=== PATIENT | female | born 1970 | race Caucasian/White ===

== ENCOUNTER 2017-01-14 14:46 | Emergency (ER) | payer MEDICARE, OTHER ==
[~2017-01-14] VITALS: Ht 172.7 cm; Wt 76.0 kg
[~2017-01-14 14:46] MED LIST: BENZ0.5T32 PO; CLOZ100 PO; DIVA500T35 PO; DOCU250C91 PO; HALO10 PO; HALO100A IM; HALO50VI4 IM
[2017-01-14] MEDS ORDERED: PROZ10 PO (15:25)
[2017-01-14] MEDS ORDERED: LORA1TAB3 PO (15:25)
[2017-01-14] MEDS ORDERED: ZIPR20I IM ×2 (15:25)
[2017-01-14] MEDS ORDERED: MIRT30 PO (15:25)
[2017-01-14] MEDS ORDERED: LORA1TAB3 IM (15:25)
[2017-01-14] MEDS ORDERED: RISP4 PO (15:25)
[2017-01-14] MEDS ORDERED: RISP1 PO (15:25)
[2017-01-14] MEDS ORDERED: LITH300C3 PO (15:25)
[2017-01-14 16:20] LABS: BASOPHILS # (AUTO) 0.03 K/uL (0.00-0.20); BASOPHILS % (AUTO) 0.4 % (0.0-2.0); EOSINOPHILS # (AUTO) 0.06 K/uL (0.00-0.70); EOSINOPHILS % (AUTO) 0.79 % (1.0-6.0); HEMATOCRIT 33.9 % (36-46); LYMPHOCYTES % (AUTO) 12.9 % (22.0-44.0); MEAN CORPUSCULAR HEMOGLOBIN 30.5 pg (26.0-34.0); MEAN CORPUSCULAR HGB CONC 32.5 G/dL (31.0-37.0); MEAN CORPUSCULAR VOLUME 94 fL (80-100); MONOCYTES # (AUTO) 0.5 K/uL (0.1-1.0); MONOCYTES % (AUTO) 6.8 % (2.0-9.0); NEUTROPHILS # (AUTO) 6.2 K/uL (1.8-7.7); NEUTROPHILS % (AUTO) 79.2 % (40.0-70.0); PLATELET COUNT (AUTO) 263 K/uL (150-450); RED BLOOD CELL COUNT(AUTO) 3.61 MIL/uL (4.00-5.20); RED CELL DISTRIBUTION WIDTH 12.9 % (11.5-14.5); WHITE BLOOD COUNT (AUTO) 7.8 K/uL (4.5-11.0)
[2017-01-14 16:21] LABS: ANION GAP 8 mmol/L (8-16); CARBON DIOXIDE 28 mmol/L (22-29); CHLORIDE 98 mmol/L (98-107); CREATININE 0.91 mg/dL (0.60-1.30); GLOMERULAR FILTR. RATE CALC > 60 mL/min (>60); POTASSIUM 4.4 mmol/L (3.5-5.1); SODIUM SERUM 134 mmol/L (136-145); UREA NITROGEN, BLOOD 9 mg/dL (7-18)
[2017-01-14 16:27] LABS: ALANINE AMINOTRANSFERASE 26 U/L (12-78); ALBUMIN 3.6 g/dL (3.4-5.0); ASPARTATE AMINOTRANSFERASE 18 U/L (15-37); BILIRUBIN,TOTAL 0.2 mg/dL (0.1-1.0); TOTAL PROTEIN, SERUM 7.1 g/dL (6.4-8.2)
[2017-01-14 17:41] VITALS: BP 125/73
== END 2017-01-14 18:10 | disposition home or self-care (01) ==
LOC: EMS 14:49
DX: F20.9 Schizophrenia, unspecified (principal); J44.9 Chronic obstructive pulmonary disease, unspecified; F17.210 Nicotine dependence, cigarettes, uncomplicated; Z88.8 Allergy status to other drugs, medicaments and biological substances
CPT/HCPCS: 36415; 80053; 80307; 85025; 99284; G0480

== ENCOUNTER 2017-02-19 11:26 | Emergency (ER) | payer MEDICARE, OTHER ==
[~2017-02-19] VITALS: Ht 170.2 cm; Wt 77.3 kg
[~2017-02-19 11:26] MED LIST changes: -CLOZ100 PO; -DIVA500T35 PO; -HALO10 PO; -HALO100A IM; -HALO50VI4 IM; +LITH300C3 PO; +LORA1TAB3 IM; +LORA1TAB3 PO; +MIRT30 PO; +PROZ10 PO; +RISP1 PO; +RISP4 PO; +ZIPR20I IM
[2017-02-19] MEDS ORDERED: DIPH25 PO (11:38)
[2017-02-19] MEDS ORDERED: FLUPH2.5I IM (11:38)
[2017-02-19 11:43] VITALS: BP 116/65
== END 2017-02-19 13:26 | disposition home or self-care (01) ==
LOC: EMS 11:28
DX: F31.9 Bipolar disorder, unspecified (principal); F20.9 Schizophrenia, unspecified; J44.9 Chronic obstructive pulmonary disease, unspecified; F17.210 Nicotine dependence, cigarettes, uncomplicated; Z88.8 Allergy status to other drugs, medicaments and biological substances
CPT/HCPCS: 99284

== ENCOUNTER 2025-07-05 12:05 | Inpatient (IN) | payer MEDICARE, MEDICAID ==
[~2025-07-05] VITALS: Ht 170.2 cm; Wt 82.3 kg
[~2025-07-05 12:05] MED LIST changes: +DIPH-1243 PO; +FLUO10CA24 PO; +FLUPH2.5I IM; +LORA1TAB25 IM; +LORA1TAB25 PO; -LORA1TAB3 IM; -LORA1TAB3 PO; +MIRT-149 PO; -MIRT30 PO; -PROZ10 PO; -RISP1 PO; +RISP1TAB48 PO; -RISP4 PO; +RISP4TAB94 PO; -ZIPR20I IM; +ZIPR20VI IM
[2025-07-05 12:51] LABS: PLATELET COUNT (AUTO) 204 K/uL (150-450); RED BLOOD CELL COUNT(AUTO) 3.86 MIL/uL (4.00-5.20); RED CELL DISTRIBUTION WIDTH 19.4 % (11.5-14.5); WHITE BLOOD COUNT (AUTO) 6.7 K/uL (4.5-11.0)
[2025-07-05 13:14] LABS: COVID AG,FIA SOURCE NPH
[2025-07-05 13:17] LABS: CALCIUM, TOTAL 9.0 mg/dL (8.8-10.5); CREATININE 0.59 mg/dL (0.60-1.30); GLOMERULAR FILTR. RATE CALC > 60 mL/min (>60); GLUCOSE,RANDOM 119 mg/dL (70-110); SODIUM SERUM 133 mmol/L (136-145); UREA NITROGEN, BLOOD 7 mg/dL (7-18)
[2025-07-05 13:19] LABS: APPEARANCE,URINE CLEAR (CLEAR); GLUCOSE, URINE (UA) TRACE mg/dL (NEGATIVE); LEUKOCYTE ESTERASE ,URINE NEGATIVE (NEGATIVE); NITRATE,URINE NEGATIVE (NEGATIVE); OCCULT BLOOD,URINE NEGATIVE (NEGATIVE); PH,URINE DRUG SCREEN 7.0 (5.0-8.0); SPECIFIC GRAVITIY, URINE 1.005 (1.003-1.030)
[2025-07-05 13:43] LABS: ALCOHOL, URINE DRUG SCREEN NEGATIVE (NEGATIVE); AMPHET/METH SCREEN,URINE NEGATIVE (NEGATIVE); BARBITURATE SCREEN, URINE NEGATIVE (NEGATIVE); CANNABINOID SCREEN,URINE NEGATIVE (NEGATIVE); COCAINE SCREEN,URINE NEGATIVE (NEGATIVE); METHADONE SCREEN, URINE NEGATIVE (NEGATIVE)
[2025-07-05 14:12] LABS: SARS-COV2 (COVID) ANTIGEN,FIA Negative (Negative)
[2025-07-05] MEDS: ACETAMINOPHEN 500 MG TABLET PO ONE (20:38)
[2025-07-06] MEDS ORDERED: ZOLPIDEM TARTRATE 10 MG TABLET ONE (01:23)
[2025-07-06] MEDS: ZOLPIDEM TARTRATE 10 MG TABLET PO ONE (01:25)
[2025-07-06] MEDS: MELATONIN 5 MG TABLET PO ONE (01:40)
[2025-07-06 07:35] VITALS: O2SAT 99
[2025-07-06] MEDS ORDERED: LOPERAMIDE HCL 2 MG CAPSULE PO PRN (11:15)
[2025-07-06] MEDS ORDERED: MAGNESIUM HYDROXIDE SUSPENSION 30 ML UDCUP PO PRN (11:15)
[2025-07-06] MEDS ORDERED: MAG HYDROX/ALUMINUM HYD/SIMETH ES 30 ML SUSPENSION UDCUP PO PRN (11:15)
[2025-07-06] MEDS ORDERED: PROMETHAZINE HCL 25 MG TABLET PO PRN (11:15)
[2025-07-06] MEDS ORDERED: GuaiFENesin/D-METHORPHAN [SUGAR-FREE] 200-20MG/10 ML SYRUP UDCUP PO PRN (11:15)
[2025-07-06] MEDS ORDERED: TUBERCULIN, PURIFIED PROTEIN DERIVATIVE 5 TU/0.1 ML SYRINGE ID ONE (11:15)
[2025-07-06 11:20] VITALS: BP 100/65; PULSE 95; RESP 18; TEMP 97.9; O2SAT 100
[2025-07-06] MEDS: DIVALPROEX SODIUM 500 MG ER TABLET PO SCH (13:00)
[2025-07-06] MEDS: THIAMINE 100 MG TABLET PO SCH (18:16)
[2025-07-06 20:22] VITALS: BP 126/69; PULSE 93; RESP 18; TEMP 98.7; O2SAT 100
[2025-07-06] MEDS: MELATONIN 5 MG TABLET PO SCH (20:40)
[2025-07-07] MEDS: NICOTINE 14 MG/24 HOUR PATCH TD SCH (09:00)
[2025-07-07 09:08] LABS: CHOL/HDL RATIO 2.7 (3.9-5.7); LDL CHOL (CALC.) 107.0 mg/dL (0-130)
[2025-07-07] MEDS: DOCUSATE SODIUM 250 MG CAPSULE PO SCH (10:02)
[2025-07-07] MEDS: DULoxetine HCL 20 MG CAPSULE PO SCH (10:02)
[2025-07-07] MEDS: MULTIVITAMINS WITH MINERALS, THERAPEUTIC TABLET PO SCH (10:04)
[2025-07-07] MEDS: FOLIC ACID 1 MG TABLET PO SCH (10:04)
[2025-07-07 10:15] VITALS: BP 108/91; PULSE 123; RESP 20; TEMP 97.4; O2SAT 97
[2025-07-07] MEDS: ACETAMINOPHEN 325 MG TABLET PO PRN (10:17)
[2025-07-07] MEDS ORDERED: NICOTINE 14 MG/24 HOUR PATCH TD PRN (10:30)
[2025-07-07 21:19] VITALS: BP 93/64; PULSE 91; RESP 18; TEMP 98.3; O2SAT 99
[2025-07-08 06:07] LABS: HEPATITIS C AB (EIA) Non Reactive (Non Reactive)
[2025-07-08 06:17] VITALS: BP 112/68; PULSE 87; RESP 18; TEMP 98; O2SAT 98
[2025-07-08] MEDS: IBUPROFEN 600 MG TABLET PO PRN (06:20)
[2025-07-08 07:17] VITALS: RESP 18
[2025-07-08 08:30] VITALS: BP 94/78; PULSE 135; RESP 16; TEMP 98; O2SAT 96
[2025-07-08] MEDS: DULoxetine HCL 30 MG CAPSULE PO SCH (09:36)
[2025-07-08] MEDS: PREGABALIN 25 MG CAPSULE PO SCH (09:36)
[2025-07-08 21:05] VITALS: BP 106/68; PULSE 89; RESP 18; TEMP 98.9; O2SAT 99
[2025-07-09 08:00] VITALS: BP 100/53; PULSE 78; RESP 17; O2SAT 100
[2025-07-09] MEDS: PREGABALIN 50 MG CAPSULE PO SCH (12:13)
[2025-07-09 18:26] VITALS: BP 112/51; PULSE 83; RESP 16; TEMP 97.8; O2SAT 100
[2025-07-09] MEDS: DIVALPROEX SODIUM 250 MG ER TABLET PO SCH (20:19)
[2025-07-09 21:22] VITALS: BP 108/74; PULSE 84; RESP 18; TEMP 97.5; O2SAT 97
[2025-07-10] MEDS: DULoxetine HCL 20 MG CAPSULE PO SCH (08:42)
[2025-07-10] MEDS: DiphenhydrAMINE HCL 25 MG/10 ML SOLUTION UDCUP PO PRN (10:32)
[2025-07-10 12:05] VITALS: BP 102/63; PULSE 75; RESP 16; TEMP 98.1; O2SAT 100
[2025-07-10 20:41] VITALS: BP 110/51; PULSE 76; RESP 18; TEMP 98.4; O2SAT 100
[2025-07-11 10:00] VITALS: BP 112/78; PULSE 84; RESP 18; O2SAT 97
[2025-07-11] MEDS: DIVALPROEX SODIUM 500 MG DR TABLET PO SCH (21:55)
[2025-07-11 23:15] VITALS: BP 99/67; PULSE 80; RESP 18; TEMP 98.2; O2SAT 97
[2025-07-12 08:30] VITALS: RESP 18
[2025-07-12 10:30] LABS: PLATELET COUNT (AUTO) 202 K/uL (150-450); RED BLOOD CELL COUNT(AUTO) 3.83 MIL/uL (4.00-5.20); RED CELL DISTRIBUTION WIDTH 18.2 % (11.5-14.5); WHITE BLOOD COUNT (AUTO) 4.6 K/uL (4.5-11.0)
[2025-07-12 21:17] VITALS: RESP 18
[2025-07-13] MEDS ORDERED: PREG50 PO (12:00)
[2025-07-13] MEDS ORDERED: QUET200T30 PO (12:00)
[2025-07-13] MEDS ORDERED: DIVA-112 PO (12:00)
[2025-07-13] MEDS ORDERED: AMAN-24 PO (12:00)
[2025-07-13] MEDS ORDERED: BUSP15 PO (12:00)
[2025-07-13] MEDS ORDERED: CLOZ100T61 PO (12:00)
[2025-07-13] MEDS ORDERED: FLUO-341 PO (12:00)
[2025-07-13] MEDS ORDERED: MELA5TAB40 PO (12:00)
[2025-07-13] MEDS ORDERED: DOCU-412 PO (12:28)
[2025-07-13 18:55] VITALS: RESP 17
== END 2025-07-13 19:23 | DRG 885 ==
LOC: EMS 12:05 → 3EX 07-06 10:28 → UNDOADMIN 07-06 10:28
PROVIDERS: ADMIT Psychiatry & Neurology Psychiatry; ATTEND Psychiatry & Neurology Psychiatry
PROC: GZHZZZZ Group Psychotherapy (ICD-10-PCS; principal; 2025-07-06)
PROC: GZ58ZZZ Individual Psychotherapy, Cognitive-Behavioral (ICD-10-PCS; 2025-07-06)
PROC: GZ56ZZZ Individual Psychotherapy, Supportive (ICD-10-PCS; 2025-07-07)
DX: F25.9 Schizoaffective disorder, unspecified (principal); R45.851 Suicidal ideations; J44.9 Chronic obstructive pulmonary disease, unspecified; Z20.822 Contact with and (suspected) exposure to COVID-19; M79.662 Pain in left lower leg; E78.00 Pure hypercholesterolemia, unspecified; F41.9 Anxiety disorder, unspecified; K21.9 Gastro-esophageal reflux disease without esophagitis; F17.200 Nicotine dependence, unspecified, uncomplicated; Z96.649 Presence of unspecified artificial hip joint; Z63.9 Problem related to primary support group, unspecified; Z59.9 Problem related to housing and economic circumstances, unspecified; Z65.3 Problems related to other legal circumstances; Z55.9 Problems related to education and literacy, unspecified; Z91.030 Bee allergy status; Z87.59 Personal history of other complications of pregnancy, childbirth and the puerperium; Z90.49 Acquired absence of other specified parts of digestive tract; Z91.199 Patient's noncompliance with other medical treatment and regimen due to unspecified reason; Z91.51 Personal history of suicidal behavior
CPT/HCPCS: 80048; 80061; 80164; 80307; 81003; 83036; 84439; 84443; 85025; 86592; 86803; 87081; 87340; 97110; 97116; 97162; 97530; 99285; G0378; G0480

== ENCOUNTER 2025-08-12 20:28 | Inpatient (IN) | payer MEDICARE, MEDICAID ==
[~2025-08-12] VITALS: Ht 170.2 cm; Wt 64.4 kg
[~2025-08-12 20:28] MED LIST changes: +AMAN-24 PO; -BENZ0.5T32 PO; +BUSP15 PO; +CLOZ100T61 PO; -DIPH-1243 PO; +DIVA-112 PO; +DOCU-412 PO; -DOCU250C91 PO; +FLUO-341 PO; -FLUO10CA24 PO; -FLUPH2.5I IM; -LITH300C3 PO; -LORA1TAB25 IM; -LORA1TAB25 PO; +MELA5TAB40 PO; -MIRT-149 PO; +PREG50 PO; +QUET200T30 PO; -RISP1TAB48 PO; -RISP4TAB94 PO; -ZIPR20VI IM
[2025-08-12] MEDS: LORazepam 2 MG/ML VIAL IM ONE (23:59)
[2025-08-13 01:43] LABS: PLATELET COUNT (AUTO) 146 K/uL (150-450); RED BLOOD CELL COUNT(AUTO) 4.00 MIL/uL (4.00-5.20); RED CELL DISTRIBUTION WIDTH 14.1 % (11.5-14.5); WHITE BLOOD COUNT (AUTO) 6.5 K/uL (4.5-11.0)
[2025-08-13 02:01] LABS: CALCIUM, TOTAL 9.7 mg/dL (8.8-10.5); CREATININE 0.83 mg/dL (0.60-1.30); GLOMERULAR FILTR. RATE CALC > 60 mL/min (>60); GLUCOSE,RANDOM 86 mg/dL (70-110); SODIUM SERUM 140 mmol/L (136-145); UREA NITROGEN, BLOOD 14 mg/dL (7-18)
[2025-08-13 02:01] LABS: COVID AG,FIA SOURCE NASAL SWAB
[2025-08-13 02:19] LABS: SARS-COV2 (COVID) ANTIGEN,FIA Negative (Negative)
[2025-08-13 06:46] VITALS: O2SAT 96
[2025-08-13 07:15] LABS: ALCOHOL, URINE DRUG SCREEN NEGATIVE (NEGATIVE); AMPHET/METH SCREEN,URINE NEGATIVE (NEGATIVE); BARBITURATE SCREEN, URINE NEGATIVE (NEGATIVE); CANNABINOID SCREEN,URINE NEGATIVE (NEGATIVE); COCAINE SCREEN,URINE NEGATIVE (NEGATIVE); METHADONE SCREEN, URINE NEGATIVE (NEGATIVE)
[2025-08-13 07:21] LABS: PH,URINE DRUG SCREEN 6.5 (5.0-8.0)
[2025-08-13] MEDS ORDERED: ZOLPIDEM TARTRATE 10 MG TABLET PO PRN (11:15)
[2025-08-13] MEDS ORDERED: DIVALPROEX SODIUM 500 MG DR TABLET PO SCH (16:00)
[2025-08-13 16:04] VITALS: RESP 18
[2025-08-13] MEDS: DIVALPROEX SODIUM 500 MG DR TABLET PO SCH (17:00)
[2025-08-13 20:24] VITALS: RESP 18
[2025-08-14] MEDS ORDERED: DULoxetine HCL 20 MG CAPSULE PO SCH (09:00)
[2025-08-14] MEDS: DULoxetine HCL 20 MG CAPSULE PO SCH (09:34)
[2025-08-14] MEDS ORDERED: LOPERAMIDE HCL 2 MG CAPSULE PO PRN (09:45)
[2025-08-14] MEDS ORDERED: ACETAMINOPHEN 325 MG TABLET PO PRN (09:45)
[2025-08-14] MEDS ORDERED: MAG HYDROX/ALUMINUM HYD/SIMETH ES 30 ML SUSPENSION UDCUP PO PRN (09:45)
[2025-08-14] MEDS ORDERED: OMEPRAZOLE 20 MG CAPSULE PO PRN (09:45)
[2025-08-14] MEDS ORDERED: DOCUSATE SODIUM 100 MG CAPSULE PO PRN (09:45)
[2025-08-14] MEDS ORDERED: PETROLATUM,WHITE 28 GM JELLY TP PRN (09:45)
[2025-08-14] MEDS ORDERED: BENZOCAINE/MENTHOL [CEPACOL] LOZENGE PO PRN (09:45)
[2025-08-14] MEDS ORDERED: ALBUTEROL SULFATE HFA 90 MCG/PUFF 8 GM INHALER IH PRN (09:45)
[2025-08-14] MEDS ORDERED: BACITRACIN 28 GM OINTMENT TP PRN (09:45)
[2025-08-14] MEDS ORDERED: ONDANSETRON 4 MG TABLET PO PRN (09:45)
[2025-08-14] MEDS ORDERED: MAGNESIUM HYDROXIDE SUSPENSION 30 ML UDCUP PO PRN (09:45)
[2025-08-14 10:51] VITALS: BP 87/54; PULSE 72; RESP 18; TEMP 97.5
[2025-08-14] MEDS: PREGABALIN 50 MG CAPSULE PO SCH (12:43)
[2025-08-14] MEDS: DOCUSATE SODIUM 250 MG CAPSULE PO SCH (18:43)
[2025-08-14 20:09] VITALS: RESP 18; TEMP 97.7
[2025-08-14] MEDS: MELATONIN 5 MG TABLET PO SCH (21:12)
[2025-08-15] MEDS: CHOLECALCIFEROL (VIT D3) 1,000 UNITS [25 MCG] TABLET PO SCH (08:56)
[2025-08-15 10:30] VITALS: BP 110/62; PULSE 80; RESP 18; TEMP 97.8
[2025-08-15] MEDS: IBUPROFEN 600 MG TABLET PO PRN (10:32)
[2025-08-15 20:00] VITALS: BP 99/52; PULSE 86; RESP 18; TEMP 97.6
[2025-08-16] MEDS ORDERED: FluPHENAZine HCL 2.5 MG/ML INJ IM PRN (03:00)
[2025-08-16 08:00] VITALS: PULSE 80; RESP 16; TEMP 97.5; O2SAT 99
[2025-08-16] MEDS: BENZTROPINE MESYLATE 1 MG TABLET PO SCH (09:00)
[2025-08-16 20:30] VITALS: BP 99/50; PULSE 81; RESP 16; TEMP 97.2; O2SAT 98
[2025-08-17 11:06] VITALS: RESP 20
[2025-08-17 21:50] VITALS: BP 108/60; PULSE 85; RESP 17; TEMP 97.8; O2SAT 97
[2025-08-17] MEDS ORDERED: CLOZ100T61 PO (22:26)
[2025-08-17] MEDS ORDERED: HALO10TA21 PO (22:26)
[2025-08-17] MEDS ORDERED: BENZ-247 PO (22:26)
[2025-08-18 09:43] VITALS: BP 102/62; PULSE 65; RESP 18; TEMP 96.8; O2SAT 97
[2025-08-21 07:07] LABS: CLOZAPINE & NORCLOZAPINE 128 ng/mL; NORCLOZAPINE 35 ng/mL (Not Estab.)
== END 2025-08-18 15:40 | DRG 885 ==
LOC: EMS 20:35 → 3EX 08-13 14:11 → UNDOADMIN 08-13 14:11
PROVIDERS: ADMIT Psychiatry & Neurology Psychiatry; ATTEND Psychiatry & Neurology Psychiatry
DX: F20.9 Schizophrenia, unspecified (principal); E78.00 Pure hypercholesterolemia, unspecified; I10 Essential (primary) hypertension; J44.9 Chronic obstructive pulmonary disease, unspecified; Z20.822 Contact with and (suspected) exposure to COVID-19; K21.9 Gastro-esophageal reflux disease without esophagitis; M19.90 Unspecified osteoarthritis, unspecified site; K59.00 Constipation, unspecified; Z87.891 Personal history of nicotine dependence
CPT/HCPCS: 80048; 80159; 80164; 80307; 85025; 96372; 99285; G0378; G0480; J1200; J2060